=== PATIENT | male | born 1945 | race Hispanic/Latino ===

== ENCOUNTER 2016-08-10 08:47 | Outpatient (CLI) | payer MEDICARE ==
[2016-08-10] MEDS ORDERED: NACL ONE (09:11)
[2016-08-10 09:20] LABS: Blood Urea Nitrogen 32 mg/dL (9-20)
--- NOTE | 2016-08-10 12:11 | Cat Scan Report ---
CT ANGIOGRAM LOWER EXTREMITY LEFT HISTORY: Aneurysm of artery of lower extremity. TECHNIQUE: Helical CT images in 1.25 mm intervals. Sagittal and coronal reformatted images. Three-dimensional volume rendering technique. Imaging was performed from the level of the renal arteries to both lower extremities. FINDINGS: The visualized distal aorta, common iliac arteries, internal iliac arteries, external iliac arteries, femoral arteries and popliteal arteries are widely patent with less than 20% stenosis. There is no evidence for aneurysm or dissection. The bilateral anterior tibial arteries, posterior tibial arteries and peroneal arteries contain moderate diffuse arterial calcifications. The anterior and posterior tibial arteries are appear to be patent to the level of the ankle. The peroneal arteries are last visualized in the mid bennett region. There is severe fatty atrophy of the calf muscles bilaterally and left hamstring muscles. There is a fluid collection medial to the left knee measuring 5.6 x 1.9 x 10.9 cm. This appears to represent a seroma. Please correlate with the patient. Impression: No aneurysm is detected. Moderate atherosclerotic disease is identified distal to the knees bilaterally as outlined above. 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 Fluid collection medial to the left knee which probably represents a seroma
== END 2016-08-10 08:48 | disposition home or self-care (01) ==
LOC: CT 08:47
PROVIDERS: ATTEND Radiology Diagnostic Radiology
DX: I70.203 Unspecified atherosclerosis of native arteries of extremities, bilateral legs (principal); I72.4 Aneurysm of artery of lower extremity; M62.561 Muscle wasting and atrophy, not elsewhere classified, right lower leg; M62.562 Muscle wasting and atrophy, not elsewhere classified, left lower leg
CPT/HCPCS: 36415; 73706; 82565; 84520; Q9967